=== PATIENT | female | born 1960 | race Caucasian/White ===

== ENCOUNTER 2016-09-22 13:54 | Emergency (ER) | payer SELFPAY ==
[~2016-09-22] VITALS: Ht 158 cm; Wt 80.0 kg
[~2016-09-22 13:54] MED LIST: ELIMITE5 % EX; LEVOTHYROXINE175 MCG OR; SYNTHROID175 MCG PO; SYNTHROID200 MCG OR
[2016-09-22 15:19] LABS: HEMATOCRIT 35.8 % (37.0-47.0); HEMOGLOBIN 12.2 g/dl (12.0-16.0); IMMATURE GRANULOCYTES 0.5 % (0.0-1.0); MEAN CELL VOLUME 90.9 fL CALC (80.0-100.0); MEAN CORPUSCULAR HGB CONC 34.1 g/L CALC (32.0-36.0); NEUT# 4.12 thou/uL (2.00-7.15); RED BLOOD COUNT 3.94 mill/uL (4.20-5.60); RED CELL DISTRI WIDTH 12.6 % (11.5-15.5)
[2016-09-22 15:39] LABS: ALKALINE PHOSPHATASE 52 u/l (38-126); ANION GAP 12 (6-22 (CALC)); BILIRUBIN, TOTAL 0.7 mg/dL (0.0-1.4); BUN 10 mg/dL (7-17); BUN/CREATININE RATIO 16 (12-20 (CALC)); CARBON DIOXIDE 26 mmol/l (22-30); CHLORIDE 108 mmol/l (95-108); CREATININE 0.6 mg/dL (0.5-1.0); GFR > 60 ML/MIN (>=60 (CALC)); GFR FOR AFR.AMER. > 60 ML/MIN (>=60 (CALC)); GLUCOSE 69 mg/dL (65-105); POTASSIUM 3.5 mmol/l (3.5-5.1); SGOT/AST 27 u/l (14-36); SGPT/ALT 31 u/l (9-52); SODIUM 143 mmol/l (137-146); TOTAL PROTEIN 6.4 g/dL (6.3-8.2)
[2016-09-22 17:57] VITALS: BP 162/77
== END 2016-09-22 17:56 | disposition home or self-care (01) | DRG 761 ==
LOC: ED 13:54
PROVIDERS: Emergency Medicine
DX: N93.9 Abnormal uterine and vaginal bleeding, unspecified (principal); D25.9 Leiomyoma of uterus, unspecified
CPT/HCPCS: Q9967

== ENCOUNTER 2020-08-23 18:16 | Emergency (ER) | payer OTHER ==
[2020-08-23] MEDS ORDERED: FIORICET PO (19:46)
[2020-08-23 19:58] VITALS: BP 108/61
== END 2020-08-23 20:01 | disposition home or self-care (01) | DRG 103 ==
LOC: ED 18:16
DX: R51.9 Headache, unspecified (principal); I10 Essential (primary) hypertension; E03.9 Hypothyroidism, unspecified; F17.200 Nicotine dependence, unspecified, uncomplicated

== ENCOUNTER 2021-08-21 16:08 | Emergency (ER) | payer MEDICAID ==
[2021-08-21] VITALS (7 sets, daily range): BP systolic 132–164; BP diastolic 76–128
[~2021-08-21] VITALS: Ht 158.8 cm; Wt 81.6 kg
[~2021-08-21 16:08] MED LIST changes: +FIORICET PO
[2021-08-21 17:24] LABS: HEMATOCRIT 40.4 % (37.0-47.0); HEMOGLOBIN 13.3 g/dl (12.0-16.0); IMMATURE GRANULOCYTES 0.2 % (0.0-5.0); MEAN CELL VOLUME 92.9 fL CALC (80.0-100.0); MEAN CORPUSCULAR HGB 30.6 pG CALC (26.0-32.0); MEAN CORPUSCULAR HGB CONC 32.9 g/dL CAL (32.0-36.0); NEUT# 3.37 thou/uL (2.00-7.15); RED BLOOD COUNT 4.35 mill/uL (4.20-5.60); RED CELL DISTRI WIDTH 12.4 % (11.5-15.5)
[2021-08-21 17:24] LABS: URINE BILIRUBIN - DIPSTICK NEGATIVE (NEGATIVE); URINE BLOOD DIPSTICK MODERATE (NEGATIVE); URINE COLOR YELLOW; URINE GLUCOSE - DIPSTICK NEGATIVE (NEGATIVE); URINE KETONE NEGATIVE (NEGATIVE); URINE LEUK ESTERASE NEGATIVE (NEGATIVE); URINE PROTEIN - DIPSTICK NEGATIVE (NEG-TRACE); URINE SPECIFIC GRAVITY <=1.005; URINE UROBILINOGEN - DIPSTICK 0.2 E.U./dL (0.2)
[2021-08-21 17:25] LABS: URINE NITRITE - DIPSTICK NEGATIVE (Negative)
[2021-08-21 17:31] LABS: URINE RBC 0-2 RBC/hpf (0-5); URINE SQUAMOUS EPITHELIAL CELL FEW EPI/hpf (0-FEW)
[2021-08-21 17:48] LABS: INTERNATIONAL NORMALIZED RATIO 0.9 RATIO (0.7-1.3); PROTHROMBIN TIME 9.6 SECONDS (9.0-12.5)
[2021-08-21 17:49] LABS: ALBUMIN 4.2 g/dL (3.2-5.0); ANION GAP 8 (6-22 (CALC)); BILIRUBIN, TOTAL 0.5 mg/dL (0.0-1.4); BUN 16 mg/dL (7-17); BUN/CREATININE RATIO 23 (12-20 (CALC)); CARBON DIOXIDE 27 mmol/l (22-30); CHLORIDE 108 mmol/l (95-108); CREATININE 0.7 mg/dL (0.5-1.0); GFR > 60 ML/MIN (>=60 (CALC)); GFR FOR AFR.AMER. > 60 ML/MIN (>=60 (CALC)); POTASSIUM 4.1 mmol/l (3.5-5.1); SODIUM 139 mmol/l (137-146); TOTAL PROTEIN 6.8 g/dL (6.3-8.2)
[2021-08-21 17:51] LABS: ALKALINE PHOSPHATASE 80 u/l (38-126); SGOT/AST 63 u/l (14-36)
[2021-08-21 18:01] LABS: MYOGLOBIN 27 ng/mL (0 - 62)
[2021-08-21] MEDS ORDERED: GABAPENTIN100 MG PO (19:31)
== END 2021-08-21 19:48 | disposition home or self-care (01) ==
LOC: ED 16:08
PROVIDERS: Nurse Practitioner
DX: R06.02 Shortness of breath (principal); G62.9 Polyneuropathy, unspecified; M79.89 Other specified soft tissue disorders; I10 Essential (primary) hypertension; E03.9 Hypothyroidism, unspecified; F17.210 Nicotine dependence, cigarettes, uncomplicated; T50.2X6A Underdosing of carbonic-anhydrase inhibitors, benzothiadiazides and other diuretics, initial encounter; Z91.128 Patient's intentional underdosing of medication regimen for other reason

== ENCOUNTER 2022-09-12 16:23 | Emergency (ER) | payer MEDICAID ==
[~2022-09-12] VITALS: Ht 158.8 cm; Wt 88.0 kg
[~2022-09-12 16:23] MED LIST changes: +GABAPENTIN100 MG PO
[2022-09-12 16:37] VITALS: BP 109/70
[2022-09-12 17:00] VITALS: BP 103/69
[2022-09-12 17:30] VITALS: BP 125/75
[2022-09-12] MEDS ORDERED: BACTRIM DS1 TAB PO (18:01)
[2022-09-12 18:25] VITALS: BP 125/75
== END 2022-09-12 18:29 | disposition home or self-care (01) ==
LOC: ED 16:23
DX: S91.331A Puncture wound without foreign body, right foot, initial encounter (principal); I10 Essential (primary) hypertension; E03.9 Hypothyroidism, unspecified; F17.200 Nicotine dependence, unspecified, uncomplicated; W45.0XXA Nail entering through skin, initial encounter; Y93.E9 Activity, other interior property and clothing maintenance; Y92.009 Unspecified place in unspecified non-institutional (private) residence as the place of occurrence of the external cause